=== PATIENT | male | born 1940 | race Caucasian/White ===

== ENCOUNTER 2021-06-13 09:43 | Outpatient (CLI) | payer MEDICARE, BC ==
[2021-06-13 21:43] LABS: SARS-CoV-2 PCR by NAA Not Detected (NotDetected)
== END 2021-06-13 09:44 | disposition home or self-care (01) ==
LOC: CSHLAB 09:43
PROVIDERS: ATTEND Internal Medicine Critical Care Medicine
DX: Z20.822 Contact with and (suspected) exposure to COVID-19 (principal)
CPT/HCPCS: U0003; U0005

== ENCOUNTER 2021-06-18 09:22 | Outpatient (CLI) | payer MEDICARE, BC | END 2021-06-18 09:23 | disposition home or self-care (01) | LOC: CSHCP 09:22 | PROVIDERS: ATTEND Internal Medicine Critical Care Medicine | DX: R06.09 Other forms of dyspnea (principal); R94.2 Abnormal results of pulmonary function studies | CPT/HCPCS: 94060; 94726; 94729; 94760 ==